=== PATIENT | male | born 1960 ===

== ENCOUNTER → 2018-07-13 | Outpatient (CLI) | payer OTHER | LOC: FCPNEURO 20:00 | PROVIDERS: ATTEND Psychiatry & Neurology Sleep Medicine | DX: G47.31 Primary central sleep apnea (principal); G47.61 Periodic limb movement disorder ==

== ENCOUNTER → 2018-12-10 | Outpatient (CLI) | payer BC, OTHER | END | disposition home or self-care (01) | LOC: FCPNEURO 23:40 | PROVIDERS: ATTEND Psychiatry & Neurology Sleep Medicine | DX: Z46.89 Encounter for fitting and adjustment of other specified devices (principal); G47.33 Obstructive sleep apnea (adult) (pediatric); G47.39 Other sleep apnea; G47.31 Primary central sleep apnea; G47.61 Periodic limb movement disorder ==